=== PATIENT | male | born 1985 | race Caucasian/White ===

== ENCOUNTER 2016-09-12 08:46 | Emergency (ER) | payer SELFPAY ==
[~2016-09-12] VITALS: Ht 177.8 cm; Wt 88.0 kg
[2016-09-12 08:49] VITALS: BP 131/90; PULSE 58; TEMP 96.3
[2016-09-12] MEDS ORDERED: ULTRAM 50MG TAB50 MG PO (09:21)
[2016-09-12] MEDS ORDERED: IBU600 MG PO (09:21)
[2016-09-12] MEDS ORDERED: FLEXERIL 1010 MG/TAB PO (09:21)
== END 2016-09-12 09:30 | disposition home or self-care (01) ==
LOC: COL.ER 08:46
DX: M54.2 Cervicalgia (principal)
CPT/HCPCS: J1885; J2360

== ENCOUNTER 2017-01-24 18:21 | Emergency (ER) | payer OTHER ==
[~2017-01-24] VITALS: Ht 177.8 cm; Wt 85.8 kg
[~2017-01-24 18:21] MED LIST: FLEXERIL 1010 MG/TAB PO; IBU600 MG PO; ULTRAM 50MG TAB50 MG PO
[2017-01-24 18:24] VITALS: BP 140/73; TEMP 97.8
[2017-01-24] MEDS ORDERED: NAPROSYN500 MG PO (21:24)
[2017-01-24 21:37] VITALS: PULSE 60
== END 2017-01-24 21:37 | disposition home or self-care (01) ==
LOC: COL.ER 18:21
DX: M79.671 Pain in right foot (principal); M79.672 Pain in left foot; F41.9 Anxiety disorder, unspecified; F43.10 Post-traumatic stress disorder, unspecified; F12.99 Cannabis use, unspecified with unspecified cannabis-induced disorder; F17.210 Nicotine dependence, cigarettes, uncomplicated

== ENCOUNTER 2017-03-14 13:41 | Emergency (ER) | payer OTHER ==
[~2017-03-14] VITALS: Ht 177.8 cm; Wt 84.1 kg
[~2017-03-14 13:41] MED LIST changes: +NAPROSYN500 MG PO
[2017-03-14 13:53] VITALS: BP 128/76; PULSE 60; TEMP 97.9
== END 2017-03-14 15:56 | disposition home or self-care (01) ==
LOC: COL.ER 13:41
DX: S61.211D Laceration without foreign body of left index finger without damage to nail, subsequent encounter (principal); X58.XXXD Exposure to other specified factors, subsequent encounter

== ENCOUNTER 2017-05-09 04:27 | Emergency (ER) | payer OTHER ==
[~2017-05-09] VITALS: Wt 90.9 kg
[2017-05-09 04:29] VITALS: BP 151/94; TEMP 96.9
[2017-05-09] MEDS ORDERED: KLOR-CON 88 ME1 (04:33)
[2017-05-09] MEDS ORDERED: MOTRIN 800800 MG/TAB PO (05:34)
[2017-05-09 05:44] VITALS: PULSE 60
== END 2017-05-09 05:45 | disposition home or self-care (01) ==
LOC: COL.ER 04:27
DX: S43.401A Unspecified sprain of right shoulder joint, initial encounter (principal); X58.XXXA Exposure to other specified factors, initial encounter; X50.3XXA Overexertion from repetitive movements, initial encounter; Y92.511 Restaurant or cafe as the place of occurrence of the external cause

== ENCOUNTER 2018-03-13 20:38 | Emergency (ER) | payer OTHER ==
[~2018-03-13] VITALS: Ht 175.3 cm; Wt 84.1 kg
[~2018-03-13 20:38] MED LIST changes: +KLOR-CON 88 ME1; +MOTRIN 800800 MG/TAB PO
[2018-03-13 20:44] VITALS: BP 138/90; TEMP 98.1
[2018-03-13] MEDS ORDERED: FLEXERIL 1010 MG/TAB PO (21:10)
[2018-03-13 21:15] VITALS: PULSE 74
== END 2018-03-13 21:15 | disposition home or self-care (01) ==
LOC: COL.ER 20:38
DX: G89.29 Other chronic pain (principal); M25.511 Pain in right shoulder; M62.830 Muscle spasm of back; F17.210 Nicotine dependence, cigarettes, uncomplicated
CPT/HCPCS: J1885

== ENCOUNTER 2018-04-29 06:27 | Emergency (ER) | payer OTHER ==
[~2018-04-29] VITALS: Ht 177.8 cm; Wt 84.1 kg
[2018-04-29 06:30] VITALS: TEMP 98.6
[2018-04-29] MEDS ORDERED: PAIN MEDS (06:33)
[2018-04-29 07:33] VITALS: BP 135/86; PULSE 80
== END 2018-04-29 07:26 | disposition home or self-care (01) ==
LOC: COL.ER 06:27
DX: J02.9 Acute pharyngitis, unspecified (principal); F43.10 Post-traumatic stress disorder, unspecified; F41.9 Anxiety disorder, unspecified; F17.210 Nicotine dependence, cigarettes, uncomplicated
CPT/HCPCS: J0561